=== PATIENT | female | born 1960 | race Hispanic/Latino ===

== ENCOUNTER → 2024-01-05 | Outpatient (CLI) | payer OTHER ==
--- NOTE | 2024-01-05 15:31 | HMCIMG ---
DEXA BONE DENSITY SURVEY HISTORY: Menopause COMPARISON: None FINDINGS: Bone densitometry study was performed. Bone mineral density of the lumbar spine is 0.947 gram per centimeter square which corresponds to a T score of -0.9 and a Z score of 0.9. Bone mineral density of the left hip is 0.945 grams per centimeter square which corresponds to a T score of -0.1 and a Z score of 1.0. IMPRESSION: 1. Normal bone mineral density of the lumbar spine and left hip.
== END | disposition home or self-care (01) ==
LOC: RAH 14:54
PROVIDERS: ATTEND Family Medicine
DX: Z78.0 Asymptomatic menopausal state (principal)
CPT/HCPCS: 77080